=== PATIENT | male | born 1960 | race Caucasian/White ===

== ENCOUNTER 2018-01-27 09:10 | Observation (INO) | payer MEDICARE ==
[~2018-01-27] VITALS: Ht 182.9 cm; Wt 67.0 kg
[2018-01-27 09:12] VITALS: BP 140/105; PULSE 123; RESP 26; TEMP 97.5; O2SAT 99
[2018-01-27 09:22] VITALS: BP 152/105; PULSE 112; RESP 22; O2SAT 99
--- NOTE | 2018-01-27 09:23 | PD ---
HPI Chief Complaint: Respiratory Symptoms Time Seen by Provider: 09:21 Travel History International Travel<30 days: No Contact w/Intl Traveler<30days: No Traveled to known affect area: No History of Present Illness HPI Patient complains that he has had a gradual onset of worsening shortness of breath since Monday, worsening whenever he lays flat, patient states that he is also had some productive sputum as well. Patient denies any alleviating factors. Patient also denies any associated factors such as fever, rash, back pain, headache, neck pain, abdominal pain, nausea, vomiting or diarrhea. PCP is Dr. MARIANO PARKER Oncologist Dr. Carter No known drug allergies Past medical history significant for brain metastases, COPD, lung cancer with lung removal, right inguinal hernia repair, PFSH Past Medical History Cancer: Yes (LUNG CA) Cardiovascular Problems: No Diabetes: No Diminished Hearing: No Glaucoma: No Genitourinary: No Hepatitis: No Hiatal Hernia: No Hypertension: No Musculoskeletal: No Neurologic: No Psychiatric: No Reproductive: No Respiratory: Yes (COPD--ON H&P, LUNG CANCER) Thyroid Disease: No Past Surgical History Abdominal Surgery: Yes (RIGHT INGUINAL HERNIA REPAIR) Cardiac Surgery: No Ear Surgery: No Endocrine Surgery: No Eye Surgery: No Genitourinary Surgery: No Gynecologic Surgery: No Oral Surgery: No Pacemaker: No Thoracic Surgery: No Other Surgery: Yes (UMBILICAL HERNIA) Social History Alcohol Use: Yes (COUPLE OF BEERS DAILY) Tobacco Use: Yes (1 PPD--PRETTY MUCH QUIT 1 WEEK AGO) Substance Use: Yes (MARIJUANA) Allergies-Medications (Allergen,Severity, Reaction): Coded Allergies: No Known Allergies (Verified Allergy, Unknown, 01/27/18) Reported Meds & Prescriptions Reported Meds & Active Scripts Active Review of Systems Except as stated in HPI: all other systems reviewed are Neg General / Constitutional: No: Fever Eyes: No: Visual changes HENT: No: Headaches Cardiovascular: Positive: Chest Pain or Discomfort Respiratory: Positive: Shortness of Breath Gastrointestinal: No: Abdominal Pain Genitourinary: No: Dysuria Musculoskeletal: No: Pain Skin: No Rash Neurologic: No: Weakness Psychiatric: No: Depression Endocrine: No: Polydipsia Hematologic/Lymphatic: No: Easy Bruising Physical Exam Narrative GENERAL: SKIN: Warm and dry. HEAD: Atraumatic. Normocephalic. EYES: Pupils equal and round. No scleral icterus. No injection or drainage. ENT: No nasal bleeding or discharge. Mucous membranes pink and moist. NECK: Trachea midline. No JVD. CARDIOVASCULAR: Regular rate and rhythm. RESPIRATORY: No accessory muscle use. Clear to auscultation. Breath sounds equal bilaterally. GASTROINTESTINAL: Abdomen soft, non-tender, nondistended. MUSCULOSKELETAL: Extremities without clubbing, cyanosis, or edema. No obvious deformities. NEUROLOGICAL: Awake and alert. No obvious cranial nerve deficits. Motor grossly within normal limits. Five out of 5 muscle strength in the arms and legs. Normal speech. PSYCHIATRIC: Appropriate mood and affect; insight and judgment normal. Data Data Last Documented VS Orders Orders Complete Blood Count With Diff (01/27/18 09:36) Comprehensive Metabolic Panel (01/27/18 09:36) B-Type Natriuretic Peptide (01/27/18 09:36) Act Partial Throm Time (Ptt) (01/27/18 09:36) Prothrombin Time / Inr (Pt) (01/27/18 09:36) Ckmb (Isoenzyme) Profile (01/27/18 09:36) Troponin I (01/27/18 09:36) Influenzae A/B Antigen (01/27/18 09:36) Iv Access Insert/Monitor (01/27/18 09:36) Electrocardiogram (01/27/18 09:36) Ecg Monitoring (01/27/18 09:36) Oximetry (01/27/18 09:36) Oxygen Administration (01/27/18 09:36) Chest, Single Ap (01/27/18 09:36) Sodium Chloride 0.9% Flush (Ns Flush) (01/27/18 09:45) Ceftriaxone Inj (Rocephin Inj) (01/27/18 10:15) Azithromycin Inj (Zithromax Inj) (01/27/18 10:15) Vital Signs (Adult) TODD.Q4H (01/27/18 11:10) Resp Oxygen Javier C Titrat 1-4 L (01/27/18 ) Albuterol Neb (Albuterol Neb) (01/27/18 11:15) Admit Order (Ed Use Only) (01/27/18 11:11) Labs Laboratory Tests Test 01/27/18 09:41 White Blood Count 7.1 TH/MM3 Red Blood Count 5.02 MIL/MM3 Hemoglobin 15.5 GM/DL Hematocrit 45.3 % Mean Corpuscular Volume 90.4 FL Mean Corpuscular Hemoglobin 30.8 PG Mean Corpuscular Hemoglobin Concent 34.1 % Red Cell Distribution Width 13.9 % Platelet Count 292 TH/MM3 Mean Platelet Volume 7.9 FL Neutrophils (%) (Auto) 75.3 % Lymphocytes (%) (Auto) 16.1 % Monocytes (%) (Auto) 7.3 % Eosinophils (%) (Auto) 0.8 % Basophils (%) (Auto) 0.5 % Neutrophils # (Auto) 5.3 TH/MM3 Lymphocytes # (Auto) 1.1 TH/MM3 Monocytes # (Auto) 0.5 TH/MM3 Eosinophils # (Auto) 0.1 TH/MM3 Basophils # (Auto) 0.0 TH/MM3 CBC Comment DIFF FINAL Differential Comment Prothrombin Time 11.2 SEC Prothromb Time International Ratio 1.1 RATIO Activated Partial Thromboplast Time 30.5 SEC D-Dimer Quantitative (PE/DVT) 0.76 MG/L FEU Blood Urea Nitrogen 10 MG/DL Creatinine 1.01 MG/DL Random Glucose 148 MG/DL Total Protein 7.5 GM/DL Albumin 3.7 GM/DL Calcium Level 8.9 MG/DL Alkaline Phosphatase 103 U/L Aspartate Amino Transf (AST/SGOT) 19 U/L Alanine Aminotransferase (ALT/SGPT) 16 U/L Total Bilirubin 0.8 MG/DL Sodium Level 133 MEQ/L Potassium Level 4.0 MEQ/L Chloride Level 98 MEQ/L Carbon Dioxide Level 28.0 MEQ/L Anion Gap 7 MEQ/L Estimat Glomerular Filtration Rate 77 ML/MIN Total Creatine Kinase 52 U/L Troponin I LESS THAN 0.02 NG/ML B-Type Natriuretic Peptide 1088 PG/ML [facility] Medical Decision Making Medical Screen Exam Complete: Yes Emergency Medical Condition: Yes Medical Record Reviewed: Yes Interpretation(s) EKG shows sinus tachycardia 103 bpm, P pulmonale, left axis deviation, LVH, inverted T waves on 1 aVL V5 and V6 Differential Diagnosis Pneumothorax versus pneumonia versus pulmonary edema versus pleural effusion versus STEMI versus non-STEMI Narrative Course CBC showed no leukocytosis, no anemia, normal platelet count, and no left shift. Coagulation profile is within normal limits Patient's electrolytes are all within normal limits, normal kidney liver and pancreatic functions. First set of cardiac enzymes negative, beta natruretic peptide 1088, this normally would suggest pulmonary edema however this patient does have a full pneumonectomy of the left lung and thus it is expected that the patient will have cor pulmonale type findings including an elevated beta natruretic peptide Negative flu test Diagnosis Primary Impression: Orthopnea Additional Impression: RLL pneumonia Qualified Codes: J18.1 - Lobar pneumonia, unspecified organism Scripts Fluoxetine (Prozac) 10 Mg Cap 10 MG PO DAILY for Anxiety, #30 CAP 0 Refills Prov: Magno Maxwell MD 01/30/18 Furosemide (Furosemide) 40 Mg Tab 40 MG PO DAILY for heart for 30 Days, #30 TAB Prov: Magno Maxwell MD 01/30/18 Lisinopril (Lisinopril) 5 Mg Tab 2.5 MG PO DAILY for heart for 30 Days, #15 TAB Prov: Magno Maxwell MD 01/30/18 Defibrillator Jacket (Defibrillator Jacket) 1 Ea Device EA EXTERNAL ONCE for nonischemic cardiomyoapthy, #1 3 Refills Energy = 150 Joules; VT Threshold = 150 BPM; VF Threshold = 200 BPM Use up to 90 days only Prov: Pelon Ray MD 01/30/18 Raimundo De La Rosa MD Jan 27, 2018 09:23
[2018-01-27] MEDS ORDERED: SODIUM CHLORIDE 0.9% FLUSH 10 ML FLUSH IVF PRN (09:45)
[2018-01-27 10:00] LABS: AUTOMATED NEUTROPHIL # 5.3 TH/MM3 (1.8-7.7); BASOPHIL % 0.5 % (0.0-2.0); EOSINOPHIL # 0.1 TH/MM3 (0-0.4); EOSINOPHIL % 0.8 % (0.0-4.0); HEMATOCRIT 45.3 % (39.0-51.0); HEMOGLOBIN 15.5 GM/DL (13.0-17.0); LYMPH % 16.1 % (9.0-44.0); LYMPHOCYTE # 1.1 TH/MM3 (1.0-4.8); MEAN CELL VOLUME 90.4 FL (80.0-100.0); MEAN CORPUSCULAR HEMOGLOBIN 30.8 PG (27.0-34.0); MEAN CORPUSCULAR HGB CONC 34.1 % (32.0-36.0); MEAN PLATELET VOLUME 7.9 FL (7.0-11.0); MONO % 7.3 % (0.0-8.0); MONOCYTE # 0.5 TH/MM3 (0-0.9); NEUT % 75.3 % (16.0-70.0); PLATELET COUNT 292 TH/MM3 (150-450); RED BLOOD COUNT 5.02 MIL/MM3 (4.50-5.90); RED CELL DISTRIBUTION WIDTH 13.9 % (11.6-17.2); WHITE BLOOD COUNT 7.1 TH/MM3 (4.0-11.0)
--- NOTE | 2018-01-27 10:04 | RADRPT ---
EXAM DATE/TIME: 01/27/2018 09:45 [facility] COMPARISON: No previous studies available for comparison. INDICATIONS : Shortness of breath. MEDICAL HISTORY : Carcinoma, lung. SURGICAL HISTORY : Left lobectomy. ENCOUNTER: Initial ACUITY: 2 days PAIN SCORE: 0/10 LOCATION: Bilateral chest FINDINGS: 2 AP erect views of the chest were obtained and demonstrat fat e the patient is status post left thor acotomy and pneumonectomy. The left hemithorax is completely opacified and there is volume loss and m ediastinal shift to the left. The right lung is clear except for mild hazy opacity in the right lung base. Multiple surgical clips and raquel are present in the left perihilar region. The bony thorax i s otherwise unremarkable. CONCLUSION: 1. Expected postoperative changes status post left thoracotomy and pneumonectomy. 2. Mild hazy opacity in the right lung base. Sharan Sumner MD on January 27, 2018 at 10:01 Board Certified Radiologist. This report was verified electronically.
[2018-01-27 10:07] LABS: INTERNATIONAL NORMALIZED RATIO 1.1 RATIO; PROTHROMBIN TIME - PATIENT 11.2 SEC (9.8-11.6)
[2018-01-27] MEDS ORDERED: cefTRIAXone INJ 1,000 MG in SODIUM CHLORIDE 0.9% INJ 100 ML IV ONE (10:15)
[2018-01-27] MEDS ORDERED: AZITHROMYCIN INJ 500 MG in SODIUM CHLOR 0.9% 250 ML INJ 250 ML IV ONE (10:15)
[2018-01-27 10:33] LABS: ALBUMIN 3.7 GM/DL (3.4-5.0); AST (GOT) 19 U/L (15-37); BLOOD UREA NITROGEN 10 MG/DL (7-18); CALCIUM 8.9 MG/DL (8.5-10.1); CHLORIDE 98 MEQ/L (98-107); CREATININE 1.01 MG/DL (0.60-1.30); GLOMERULAR FILTRATION RATE 77 ML/MIN (>89); GLUCOSE,RANDOM 148 MG/DL (74-106); SODIUM (NA) 133 MEQ/L (136-145)
[2018-01-27 10:34] LABS: ALT (GPT) 16 U/L (12-78)
[2018-01-27 10:38] LABS: ALKALINE PHOSPHATASE 103 U/L (45-117); TOTAL BILIRUBIN ADULT 0.8 MG/DL (0.2-1.0); TOTAL PROTEIN 7.5 GM/DL (6.4-8.2); TROPONIN I LESS THAN 0.02 NG/ML (0.02-0.05)
[2018-01-27] MEDS ORDERED: ACETAMINOPHEN 325 MG TAB PO PRN (12:15)
--- NOTE | 2018-01-27 12:16 | HHI.HP ---
[facility] Jer Castano MD Admission Diagnosis RLL PNA (LEFT PNEUMONECTOMY) Diagnoses: (1) RLL pneumonia Diagnosis: Principal Chief Complaint: worsening sob Travel History International Travel<30 Days: No Contact w/Intl Traveler <30 Da: No Traveled to Known Affected Are: No History of Present Illness patient is a 57 y/o male with history of lung cancer-s/p left pneumonectomy, and history of melanoma, presented to ER with shortness of breath. he says that his sob started a few days ago and gradually got worse. he denies any fever, chills. he says that he had mild occasional dry cough last week. he denies any chest pain. he doesn't report any recent weight gain and leg swelling. he reports PND and says that he couldn't sleep past few nights because of sob. Review of Systems Constitutional: DENIES: Fever, Weight loss, Chills, Night Sweats Eyes: DENIES: Blurred vision, Diplopia, Vision loss, Double Vision Ears, nose, mouth, throat: DENIES: Tinnitus, Vertigo, Throat pain, Epistaxis Respiratory: COMPLAINS OF: Cough, Shortness of breath, DENIES: Apneas, Snoring , Wheezing, Hemoptysis, Sputum production Cardiovascular: DENIES: Chest pain, Palpitations, Syncope, Dyspnea on Exertion , PND, Lower Extremity Edema, Orthopnea, Claudication Gastrointestinal: DENIES: Abdominal pain, Black stools, Bloody stools, Constipation, Diarrhea, Nausea, Vomiting, Difficulty Swallowing, Anorexia Genitourinary: DENIES: Urinary frequency, Urgency, Hematuria, Dysuria Musculoskeletal: DENIES: Joint pain, Muscle aches, Stiffness, Joint Swelling Integumentary: DENIES: Rash Neurologic: DENIES: Abnormal gait, Headache, Localized weakness, Paresthesias, Seizures, Speech Problems, Tremor, Poor Balance Psychiatric: DENIES: Anxiety, Confusion, Mood changes, Depression, Hallucinations, Agitation, Suicidal Ideation, Homicidal Ideation, Delusions Past Family Social History Past Medical History lung cancer/ melanoma Past Surgical History pneumonectomy/ melanoma removal. Reported Medications none. Allergies: Coded Allergies: No Known Allergies (Verified Allergy, Unknown, 01/27/18) Active Ordered Medications Inpatient Medications Albuterol Sulfate (Albuterol Neb) 1.25 mg Q2HR NEB PRN NEB SHORTNESS OF BREATH ; Start 01/27/18 at 11:15 Azithromycin 500 mg/Sodium Chloride 250 ml @ 250 mls/hr ONCE ONCE IV Last administered on 01/27/18at 10:31; Start 01/27/18 at 10:15; Stop 01/27/18 at 11:14 ; Status DC Ceftriaxone Sodium 1000 mg/ Sodium Chloride 100 ml @ 200 mls/hr ONCE ONCE IV Last administered on 01/27/18at 11:50; Start 01/27/18 at 10:15; Stop 01/27/18 at 10:44; Status DC Sodium Chloride (NS Flush) 2 ml UNSCH PRN IVF FLUSH AFTER USING IV ACCESS; Start 01/27/18 at 09:45 Family History lung cancer in father. Social History smokes a few cigarettes a day- drinks a couple of beers daily. Physical Exam Vital Signs Vital Signs Date Time Temp Pulse Resp B/P (MAP) Pulse Ox O2 Delivery O2 Flow Rate FiO2 01/27/18 09:22 112 22 152/105 (121) 99 Room Air 01/27/18 09:22 115 01/27/18 09:12 97.5 123 26 140/105 (117) 99 Physical Exam GENERAL: This is a well-nourished, well-developed patient, in no apparent distress. SKIN: No rashes, ecchymoses or lesions. Cool and dry. HEAD: Atraumatic. Normocephalic. No temporal or scalp tenderness. EYES: Pupils equal round and reactive. Extraocular motions intact. No scleral icterus. No injection or drainage. ENT: Nose without bleeding, purulent drainage or septal hematoma. Throat without erythema, tonsillar hypertrophy or exudate. Uvula midline. Airway patent. NECK: Trachea midline. No JVD or lymphadenopathy. Supple, nontender, no meningeal signs. CARDIOVASCULAR: Regular rate and rhythm without murmurs, gallops, or rubs. RESPIRATORY: diminished air entry in left chest. GASTROINTESTINAL: Abdomen soft, non-tender, nondistended. No hepato-splenomegaly , or palpable masses. No guarding. MUSCULOSKELETAL: Extremities without clubbing, cyanosis, or edema. No joint tenderness, effusion, or edema noted. No calf tenderness. Negative Homans sign bilaterally. NEUROLOGICAL: Awake and alert. Cranial nerves II through XII intact. Motor and sensory grossly within normal limits. Five out of 5 muscle strength in all muscle groups. Normal speech. Laboratory Laboratory Tests Test 01/27/18 09:41 White Blood Count 7.1 Red Blood Count 5.02 Hemoglobin 15.5 Hematocrit 45.3 Mean Corpuscular Volume 90.4 Mean Corpuscular Hemoglobin 30.8 Mean Corpuscular Hemoglobin Concent 34.1 Red Cell Distribution Width 13.9 Platelet Count 292 Mean Platelet Volume 7.9 Neutrophils (%) (Auto) 75.3 Lymphocytes (%) (Auto) 16.1 Monocytes (%) (Auto) 7.3 Eosinophils (%) (Auto) 0.8 Basophils (%) (Auto) 0.5 Neutrophils # (Auto) 5.3 Lymphocytes # (Auto) 1.1 Monocytes # (Auto) 0.5 Eosinophils # (Auto) 0.1 Basophils # (Auto) 0.0 CBC Comment DIFF FINAL Differential Comment Prothrombin Time 11.2 Prothromb Time International Ratio 1.1 Activated Partial Thromboplast Time 30.5 Blood Urea Nitrogen 10 Creatinine 1.01 Random Glucose 148 Total Protein 7.5 Albumin 3.7 Calcium Level 8.9 Alkaline Phosphatase 103 Aspartate Amino Transf (AST/SGOT) 19 Alanine Aminotransferase (ALT/SGPT) 16 Total Bilirubin 0.8 Sodium Level 133 Potassium Level 4.0 Chloride Level 98 Carbon Dioxide Level 28.0 Anion Gap 7 Estimat Glomerular Filtration Rate 77 Total Creatine Kinase 52 Troponin I LESS THAN 0.02 B-Type Natriuretic Peptide 1088 Date/Time Source Procedure Growth Status 01/27/18 09:41 Nasal Washing Influenza Types A,B Antigen (JOSE) - Final NEGATIVE FOR FLU A AND B ANTIGEN.... Complete Result Diagram: 01/27/1894001/27/18940 Imaging Last Impressions Chest X-Ray 01/27/18935 Signed Impressions: Service Date/Time: Monday, January 27, 2018 09:45 - CONCLUSION: 1. Expected postoperative changes status post left thoracotomy and pneumonectomy. 2. Mild hazy opacity in the right lung base. Sharan Sumner MD EKG; sinus tachycardia with LVH Caprini VTE Risk Assessment Caprini VTE Risk Assessment: Mod/High Risk (score >= 2) Caprini Risk Assessment Model Point Value = 1 Point Value = 2 Point Value = 3 Point Value = 5 Age 41-60 Minor surgery BMI > 25 kg/m2 Swollen legs Varicose veins or History of unexplained or recurrent spontaneous Oral contraceptives or hormone replacement Sepsis (< 1 month) Serious lung disease, including pneumonia (< 1 month) Abnormal pulmonary function Acute myocardial infarction Congestive heart failure (< 1 month) History of inflammatory bowel disease Medical patient at bed rest Age 61-74 Arthroscopic surgery Major open surgery (> 45 min) Laparoscopic surgery (> 45 min) Malignancy Confined to bed (> 72 hours) Immobilizing plaster cast Central venous access Age >= 75 History of VTE Family history of VTE Factor V Leiden Prothrombin [id number] Lupus anticoagulant Anticardiolipin antibodies Elevated serum homocysteine Heparin-induced thrombocytopenia Other congenital or acquired thrombophilia Stroke (< 1 month) Elective arthroplasty Hip, pelvis, or leg fracture Acute spinal cord injury (< 1 month) Prophylaxis Regimen Total Risk Factor Score Risk Level Prophylaxis Regimen 0-1 Low Early ambulation 2 Moderate Order ONE of the following: *Sequential Compression Device (SCD) *Heparin 5000 units SQ BID 3-4 Higher Order ONE of the following medications: *Heparin 5000 units SQ TID *Enoxaparin/Lovenox 40 mg SQ daily (WT < 150 kg, CrCl > 30 mL/min) *Enoxaparin/Lovenox 30 mg SQ daily (WT < 150 kg, CrCl > 10-29 mL/min) *Enoxaparin/Lovenox 30 mg SQ BID (WT < 150 kg, CrCl > 30 mL/min) AND/OR *Sequential Compression Device (SCD) 5 or more Highest Order ONE of the following medications: *Heparin 5000 units SQ TID (Preferred with Epidurals) *Enoxaparin/Lovenox 40 mg SQ daily (WT < 150 kg, CrCl > 30 mL/min) *Enoxaparin/Lovenox 30 mg SQ daily (WT < 150 kg, CrCl > 10-29 mL/min) *Enoxaparin/Lovenox 30 mg SQ BID (WT < 150 kg, CrCl > 30 mL/min) AND *Sequential Compression Device (SCD) Assessment and Plan Assessment and Plan A/P - worsening sob due to RLL pneumonia with history of lung cancer ( s/p left pneumonectomy in 2010 followed by chemo- being f/u by ). continue with IV antibiotics- start on neb treatment as needed- keep on oxygen as needed to keep O2 sat >90%- will check CTA chest and echo - counselled on smoking cessation. -history of melanoma- s/p removal- f/u as outpatient. -DVT prophylaxis with subq Lovenox. Discussed Condition With ER physician and the patient. Problem Qualifiers (1) RLL pneumonia: Qualified Codes: J18.1 - Lobar pneumonia, unspecified organism Lui Gonsales MD Jan 27, 2018 12:16
[2018-01-27] MEDS ORDERED: IOHEXOL 350 MG/ML 10 ML VIAL (for RAD DIAG) IVCONTRAST ONE (13:40)
--- NOTE | 2018-01-27 13:53 | RADRPT ---
EXAM DATE/TIME: 01/27/2018 13:31 [facility] COMPARISON: No previous studies available for comparison. INDICATIONS : Shortness of breath. IV CONTRAST: 50 cc Omnipaque 350 (iohexol) IV RADIATION DOSE: 5.1 CTDIvol (mGy) MEDICAL HISTORY : Carcinoma, lung. SURGICAL HISTORY : Lobectomy. ENCOUNTER: Initial ACUITY: 1 day PAIN SCALE: 0/10 LOCATION: Bilateral chest TECHNIQUE: Volumetric scanning of the chest was performed using a pulmonary embolism protocol MIP images were re constructed. Using automated exposure control and adjustment of the mA and/or kV according to patien t size, radiation dose was kept as low as reasonably achievable to obtain optimal diagnostic quality images. DICOM format image data is available electronically for review and comparison. Follow-up recommendations for detected pulmonary nodules are based at a minimum on nodule size and pa tient risk factors according to Fleischner Society Guidelines. FINDINGS: No filling defects identified in the right lung to suggest pulmonary embolic disease. Postoperative l eft pneumonectomy. There is marked mediastinal shift from right to left some residual fluid in the le ft pleural space. Multiple surgical clips on the left. There is a small right-sided pleural effusion. Mild emphysema in the right lung. CONCLUSION: 1. Negative for pulmonary embolus. 2. Small right pleural effusion. Mild emphysema. 3. Postoperative left pneumonectomy. Gomez Sanon MD on January 27, 2018 at 13:47 Board Certified Radiologist. This report was verified electronically.
[2018-01-27 15:40] VITALS: BP 118/88; PULSE 104; RESP 18; TEMP 97.9; O2SAT 97
[2018-01-27] MEDS: ENOXAPARIN SODIUM 40 MG/0.4 ML SYRINGE SQ SCH (16:09)
[2018-01-27 20:03] VITALS: BP 130/93; PULSE 101; RESP 20; TEMP 97.6; O2SAT 98
[2018-01-27 20:19] VITALS: O2SAT 98
[2018-01-27 23:29] VITALS: BP 126/94; PULSE 110; RESP 20; TEMP 97.3; O2SAT 98
[2018-01-28] VITALS (9 sets, daily range): BP systolic 111–138; BP diastolic 78–101; PULSE 98–115; RESP 18–20; TEMP 97.9–98.8; O2SAT 96–99
[2018-01-28] MEDS: RESP: ALBUTEROL 1.25 MG/3 ML NEB (PRN) NEB ×2 (08:52→16:49)
[2018-01-28] MEDS ORDERED: FUROSEMIDE 20 MG/2 ML VIAL IV PUSH ONE (11:00)
[2018-01-28] MEDS: cefTRIAXone INJ 1,000 MG in SODIUM CHLORIDE 0.9% INJ 100 ML IV SCH (11:21)
[2018-01-28] MEDS: AZITHROMYCIN INJ 500 MG in SODIUM CHLOR 0.9% 250 ML INJ 250 ML IV SCH (11:49)
--- NOTE | 2018-01-28 12:25 | EKG ---
Date Performed: 01/27/2018 Time Performed: 09:25:39 PTAGE: 57 years EKG: SINUS TACHYCARDIA POSSIBLE LEFT ATRIAL ENLARGEMENT MARKED LEFT AXIS DEVIATION LEFT VENTRICU LAR HYPERTROPHY AND ST-T CHANGE ABNORMAL ECG Compared to PREVIOUS TRACING , T-wave inversion in the lateral leads is now present. PREVIOUS TRACING : 03/05/20110502 DOCTOR: Ander Kerns Interpretating Date/Time 01/28/2018 12:22:16
--- NOTE | 2018-01-28 13:35 | MB ---
cc: Pelon Ray MD DATE: 01/28/2018 INDICATION: Congestive heart failure. HISTORY OF PRESENT ILLNESS: This is a 57-year-old gentleman status post lung cancer and left pneumonectomy. He also has a history of prior melanoma, but no prior history of known heart disease. He states that he has had progressive shortness of breath over the course of the past week or so. His symptoms are worse while lying flat. He says he has a difficult time sleeping. He came into the emergency department yesterday very short of breath. He said he did have a bowel movement with improvement in some of his symptoms, but then last night, they became worse again. He denies any recent weight gain, does not have any edema in the legs. His BNP was elevated. There is concern for new congestive heart failure symptoms and we are consulted for further recommendations. PAST MEDICAL HISTORY: Lung cancer, melanoma. PRIOR SURGERIES: Pneumonectomy, melanoma removal. ALLERGIES: NO KNOWN DRUG ALLERGIES. MEDICATIONS: Ceftriaxone, azithromycin, albuterol. SOCIAL HISTORY: Smokes a few cigarettes a day, has a couple drinks of alcohol a day. Denies any family history of early coronary artery disease or sudden cardiac . REVIEW OF SYSTEMS: A 12-point review of systems was performed, negative unless otherwise noted in history of present illness. PHYSICAL EXAMINATION: VITAL SIGNS: Temperature is 98, pulse is 110-115 beats a minute, blood pressure is 138/101. GENERAL: Alert and oriented x 3, in no acute distress. HEENT: Shows pupils reactive to light and accommodation. Extraocular movements are intact. NECK: No elevation or jugular venous distention. No thyromegaly, no lymphadenopathy. No carotid bruits. LUNGS: Clear to auscultation bilaterally. Decreased breath sounds on the left side. CARDIOVASCULAR: Tachycardic, but regular. No murmurs, rubs or gallops. ABDOMEN: Nontender, nondistended with good bowel sounds. No hepatosplenomegaly. EXTREMITIES: Show no clubbing, cyanosis or edema. Good peripheral pulses. NEUROLOGIC: Cranial nerves intact. Motor system grossly intact. LABORATORY DATA: WBC 7.1, hemoglobin 15.5, platelet count is 292. INR is 1.1. BUN is 10, creatinine is 1.01. Troponins is 0.02. Electrocardiogram shows sinus tachycardia, T-wave inversions anterolaterally. ASSESSMENT: 1. Shortness of breath. 2. Abnormal electrocardiogram, elevated BNP. PLAN: Physical examination is not terribly concerning for congestive heart failure. His jugular veins are not severely elevated. His 1 lung does not have significant crackles. He has no edema, but his BNP is elevated. He does have some T-wave inversions, which appear to be new. Denies any stephen chest pain. He is on antibiotics in addition to some diuretics. We will see how he progresses over the course of the next 24 hours. We will watch his creatinine and ins and outs. A 2-D echocardiogram is pending. Without any symptoms at this point, we will just repeat electrocardiogram and trend troponin. No plan for any invasive strategy or stress testing. Pleon Ray MD LUCIA/SB , 01:08 PM , 01:34 PM
[2018-01-28] MEDS: ENOXAPARIN SODIUM 40 MG/0.4 ML SYRINGE SQ SCH (14:47)
--- NOTE | 2018-01-28 17:28 | HHI.PR ---
Subjective Remarks Patient seen today around 3 PM. Says that shortness of breath is improving. Denies any chest pain. Objective Vital Signs Date Time Temp Pulse Resp B/P (MAP) Pulse Ox O2 Delivery O2 Flow Rate FiO2 01/28/18 16:03 98.4 102 18 117/90 (99) 98 01/28/18 13:25 98.8 106 20 114/81 (92) 99 01/28/18 09:16 98 Nasal Cannula 2.00 01/28/18 08:53 98 Simple Mask 3.00 01/28/18 07:57 98.1 115 20 138/101 (113) 96 01/28/18 03:37 98.0 102 20 113/87 (96) 97 01/27/18 23:29 97.3 110 20 126/94 (105) 98 01/27/18 20:19 98 01/27/18 20:03 97.6 101 20 130/93 (105) 98 I/O 01/27/18 01/27/18 01/27/18 01/28/18 01/28/18 01/28/18 07:00 15:00 23:00 07:00 15:00 23:00 Intake Total 350 ml Output Total 1000 ml Balance 350 ml -1000 ml Intake IV Total 350 ml Output Urine Total 1000 ml Result Diagram: 01/27/1894001/27/18940 Objective Remarks GENERAL: patient sitting up in bed. Appears comfortable. SKIN: Warm and dry. HEAD: Normocephalic. EYES: No scleral icterus. No injection or drainage. NECK: Supple, trachea midline. No JVD. CARDIOVASCULAR: Regular rate and rhythm without murmurs, gallops, or rubs. RESPIRATORY: absent breath sounds on the left.. No accessory muscle use. GASTROINTESTINAL: Abdomen soft, non-tender, nondistended. MUSCULOSKELETAL: No cyanosis, or edema. BACK: Nontender without obvious deformity. No CVA tenderness. A/P Assessment and Plan // worsening sob due to RLL pneumonia with history of lung cancer ( s/p left pneumonectomy in 2010 followed by chemo- being f/u by ). continue with IV antibiotics- start on neb treatment as needed- keep on oxygen as needed to keep O2 sat >90%- will check CTA chest and echo - = Small right pleural effusion on CT pulmonary angiogram. No PE. BNP elevated thousand. Consult cardiology. Echocardiogram pending. Fluid restrictions. //Tobaccoism .counselled on smoking cessation. //history of melanoma- s/p removal- f/u as outpatient. //DVT prophylaxis with subq Lovenox. Discharge Planning pending further improvement Echocardiogram pending. Cardiology consult pending. Magno Maxwell MD Jan 28, 2018 17:28
[2018-01-29 07:53] VITALS: BP 113/82; PULSE 109; RESP 20; TEMP 98.3; O2SAT 99
--- NOTE | 2018-01-29 08:48 | PD.CARD.PN ---
Subjective Subjective Remarks patient currently out of room getting imaging Objective Medications Current Medications Medications (Trade) Dose Ordered Sig/Emma Route Start Time Stop Time Status Last Admin (NS Flush) 2 ml UNSCH PRN IVF 01/27/18 09:45 (Albuterol Neb) 1.25 mg Q2HR NEB PRN NEB 01/27/18 11:15 01/28/18 16:49 Ceftriaxone Sodium 1000 mg/ Sodium Chloride 100 ml @ 200 mls/hr Q24H IV 01/28/18 12:00 01/28/18 11:21 Azithromycin 500 mg/Sodium Chloride 250 ml @ 250 mls/hr Q24H IV 01/28/18 11:00 01/28/18 11:49 (Tylenol) 650 mg Q4H PRN PO 01/27/18 12:15 (Lovenox Inj) 40 mg Q24H SQ 01/27/18 14:00 01/28/18 14:47 Vital Signs / I&O Vital Signs Date Time Temp Pulse Resp B/P (MAP) Pulse Ox O2 Delivery O2 Flow Rate FiO2 01/29/18 07:53 98.3 109 20 113/82 (92) 99 01/28/18 23:40 98.0 102 18 114/89 (97) 98 01/28/18 20:46 97.9 98 18 111/78 (89) 98 01/28/18 19:27 98 Nasal Cannula 2.00 01/28/18 16:03 98.4 102 18 117/90 (99) 98 01/28/18 13:25 98.8 106 20 114/81 (92) 99 01/28/18 09:16 98 Nasal Cannula 2.00 01/28/18 08:53 98 Simple Mask 3.00 I/O 01/28/18 01/28/18 01/28/18 01/29/18 01/29/18 01/29/18 07:00 15:00 23:00 07:00 15:00 23:00 Output Total 1000 ml 450 ml Balance -1000 ml -450 ml Output Urine Total 1000 ml 450 ml # Voids 2 Physical Exam GENERAL: SKIN: Warm and dry. HEAD: Atraumatic. Normocephalic. EYES: Pupils equal and round. ENT: No nasal bleeding or discharge. NECK: Trachea midline. No JVD. CARDIOVASCULAR: Regular rate and rhythm. no murmurs RESPIRATORY: No accessory muscle use. Clear to auscultation. Breath sounds equal bilaterally. GASTROINTESTINAL: Abdomen soft, non-tender, nondistended. Hepatic and splenic margins not palpable. MUSCULOSKELETAL: Extremities without clubbing, cyanosis, or edema.. NEUROLOGICAL: Awake and alert. No obvious cranial nerve deficits. Normal speech. PSYCHIATRIC: Appropriate mood and affect; insight and judgment normal. Imaging Last 48 hours Impressions Chest X-Ray 01/27/18 0936 Signed Impressions: Service Date/Time: Saturday, January 27, 2018 09:45 - CONCLUSION: 1. Expected postoperative changes status post left thoracotomy and pneumonectomy. 2. Mild hazy opacity in the right lung base. Sharan Sumner MD Assessment and Plan Problem List: (1) SOB (shortness of breath) ICD Codes: R06.02 - Shortness of breath Assessment and Plan 57 yo M with history of lung cancer and left pneumonectomy and melanoma presented with progressive SOB, elevated BNP and new T wave inversions on EKG tracing. SOB- possible CHF; echo pending diuresing well with negative fluid balance, monitor creatinine current treatment for RLL pneumonia with antibiotics and nebulizer Vida Trejo Jan 29, 2018 08:48
--- NOTE | 2018-01-29 09:04 | EKG ---
Date Performed: 01/28/2018 Time Performed: 13:31:49 PTAGE: 57 years EKG: Sinus rhythm POSSIBLE LEFT ATRIAL ENLARGEMENT MARKED LEFT AXIS DEVIATION LEFT VENTRICULAR HYPERTROPHY AND ST-T CH YUMIKO ABNORMAL ECG PREVIOUS TRACING : 01/27/2018 09.25 Since the previous tracing, no significant change noted DOCTOR: Patrick Moreno Interpretating Date/Time 01/29/2018 09:03:29
[2018-01-29 10:59] VITALS: BP 112/85; PULSE 94; RESP 20; TEMP 97.8; O2SAT 100
[2018-01-29] MEDS: cefTRIAXone INJ 1,000 MG in SODIUM CHLORIDE 0.9% INJ 100 ML IV SCH (11:45)
[2018-01-29] MEDS: AZITHROMYCIN INJ 500 MG in SODIUM CHLOR 0.9% 250 ML INJ 250 ML IV SCH (12:02)
--- NOTE | 2018-01-29 12:50 | ECHRPT ---
Indication: Shortness of Breath CONCLUSIONS The left ventricular systolic function is severely reduced with an estimated ejection fraction less than 20%. Mild concentric left ventricular hypertrophy. Severely dilated left ventricle. There is diffuse global hypokinesis with distinct regional wall motion abnormalities. The right ventricle is moderately dilated. The left atrial size is moderately dilated. Coronary sinus is dilated. The right atrial size is moderately dilated. Mild thickening of the mitral valve leaflets. Moderate mitral valve regurgitation. Mild thickening of the aortic valve leaflets. Mild aortic valve regurgitation. There is moderate tricuspid regurgitation. There is greater than 50% respiratory change in dimension of the inferior vena cava (normal). The inferior vena cava is dilated. BP: 138 / 101 HR: 115 Rhythm: Sinus MEASUREMENTS (Male / Female) Normal Values Technical Quality:Fair 2D ECHO LV Diastolic Diameter PLAX 7.0 cm 4.2 - 5.9 / 3.9 - 5.3 cm LV Systolic Diameter PLAX 6.2 cm IVS Diastolic Thickness 1.1 cm 0.6 - 1.0 / 0.6 - 0.9 cm LVPW Diastolic Thickness 1.1 cm 0.6 - 1.0 / 0.6 - 0.9 cm LV Relative Wall Thickness 0.3 RV Internal Dim ED PLAX 4.7 cm LVOT Diameter 2.4 cm LA Systolic Diameter LX 5.5 cm 3.0 - 4.0 / 2.7 - 3.8 cm LV Ejection Fraction MOD BP 21.2 % >= 55 % LV Cardiac Index MOD BP 3063.2 cm/minm LV Ejection Fraction MOD 4C 25.4 % LV Cardiac Index MOD 4C 3063.2 cm/minm LV Ejection Fraction 4C AL 24.8 % LV Cardiac Index 4C AL 3272.6 cm/minm LV Ejection Fraction MOD 2C 17.0 % LV Cardiac Index MOD 2C 2634.3 cm/minm LV Ejection Fraction 2C AL 20.3 % LV Cardiac Index 2C AL 3312.5 cm/minm LA Volume Index 64.1 cm/m 16 - 28 cm/m M-MODE Aortic Root Diameter MM 3.4 cm LA Systolic Diameter MM 4.6 cm LA Ao Ratio MM 1.4 MV E Point Septal Separation 1.8 cm AV Cusp Separation MM 2.1 cm DOPPLER AV Peak Velocity 73.4 cm/s AV Peak Gradient 2.2 mmHg AI Peak Velocity 469.0 cm/s AI Peak Gradient 88.0 mmHg AI Pressure Half Time 331.0 ms LVOT Peak Velocity 43.2 cm/s LVOT Peak Gradient 0.7 mmHg AV Area Cont Eq pk 2.7 cm MV Area PHT 6.9 cm Mitral E Point Velocity 75.4 cm/s Mitral A Point Velocity 23.0 cm/s Mitral E to A Ratio 3.3 LV E' Lateral Velocity 18.2 cm/s Mitral E to LV E' Lateral Ratio 4.1 LV E' Septal Velocity 7.7 cm/s Mitral E to LV E' Septal Ratio 9.8 TR Peak Velocity 407.0 cm/s TR Peak Gradient 66.3 mmHg Right Atrial Pressure 10.0 mmHg Pulmonary Artery Systolic Pressu 76.3 mmHg Right Ventricular Systolic Press 76.3 mmHg FINDINGS LEFT VENTRICLE The left ventricular systolic function is severely reduced with an estimated ejection fraction less than 20%. Mild concentric left ventricular hypertrophy. Severely dilated left ventricle. There is diffuse global hypokinesis with distinct regional wall motion abnormalities. RIGHT VENTRICLE The right ventricle is moderately dilated. LEFT ATRIUM The left atrial size is moderately dilated. Coronary sinus is dilated. RIGHT ATRIUM The right atrial size is moderately dilated. ATRIAL SEPTUM Normal atrial septal thickness without atrial level shunting by limited color doppler interrogation. AORTA The aortic root and proximal ascending aorta are normal in size on limited imaging. MITRAL VALVE Mild thickening of the mitral valve leaflets. Moderate mitral valve regurgitation. AORTIC VALVE Trileaflet aortic valve. Mild thickening of the aortic valve leaflets. Mild aortic valve regurgitation. TRICUSPID VALVE Structurally normal tricuspid valve. There is moderate tricuspid regurgitation. PULMONARY VALVE No pulmonary valve regurgitation or stenosis. VESSELS There is greater than 50% respiratory change in dimension of the inferior vena cava (normal). The inferior vena cava is dilated. PERICARDIUM No pericardial effusion. Pelon Ray MD, FACC (Electronically Signed) Final Date:29 January 2018 12:49
[2018-01-29] MEDS ORDERED: PILL SPLITTER OTHER PRN (13:00)
[2018-01-29] MEDS ORDERED: FUROSEMIDE 20 MG/2 ML VIAL IV PUSH ONE (13:00)
[2018-01-29] MEDS: ENOXAPARIN SODIUM 40 MG/0.4 ML SYRINGE SQ SCH (13:25)
[2018-01-29] MEDS ORDERED: REGADENOSON INJ 0.4 MG/5 ML SYR ONE (14:03)
--- NOTE | 2018-01-29 14:06 | HHI.PR ---
Subjective Remarks Patient seen today around 3 PM. Says that shortness of breath is improving. Denies any chest pain. Objective Vital Signs Date Time Temp Pulse Resp B/P (MAP) Pulse Ox O2 Delivery O2 Flow Rate FiO2 01/29/18 10:59 97.8 94 20 112/85 (94) 100 01/29/18 07:53 98.3 109 20 113/82 (92) 99 01/28/18 23:40 98.0 102 18 114/89 (97) 98 01/28/18 20:46 97.9 98 18 111/78 (89) 98 01/28/18 19:27 98 Nasal Cannula 2.00 01/28/18 16:03 98.4 102 18 117/90 (99) 98 I/O 01/28/18 01/28/18 01/28/18 01/29/18 01/29/18 01/29/18 07:00 15:00 23:00 07:00 15:00 23:00 Intake Total 120 ml Output Total 1000 ml 450 ml Balance -1000 ml -450 ml 120 ml Intake Oral 120 ml Output Urine Total 1000 ml 450 ml # Voids 2 Result Diagram: 01/27/1894001/27/18940 Objective Remarks GENERAL: patient sitting up in bed. Appears comfortable. Exam unchanged from yesterday. SKIN: Warm and dry. HEAD: Normocephalic. EYES: No scleral icterus. No injection or drainage. NECK: Supple, trachea midline. No JVD. CARDIOVASCULAR: Regular rate and rhythm without murmurs, gallops, or rubs. RESPIRATORY: absent breath sounds on the left.. No accessory muscle use. GASTROINTESTINAL: Abdomen soft, non-tender, nondistended. MUSCULOSKELETAL: No cyanosis, or edema. BACK: Nontender without obvious deformity. No CVA tenderness. A/P Assessment and Plan // worsening sob due to RLL pneumonia with history of lung cancer ( s/p left pneumonectomy in 2010 followed by chemo- being f/u by ). continue with IV antibiotics- start on neb treatment as needed- keep on oxygen as needed to keep O2 sat >90%- will check CTA chest and echo - = Small right pleural effusion on CT pulmonary angiogram. No PE. BNP elevated thousand. Consult cardiology. Echocardiogram pending. Fluid restrictions. = Repeat chest x-ray to assess improvement. Continue antibiotics for now. Continue to monitor. //CHF exacerbation. Improved with fluid restrictions and Lasix. Cardiology following. EF in the 20s. Stress test pending. //Tobaccoism .counselled on smoking cessation. //history of melanoma- s/p removal- f/u as outpatient. //DVT prophylaxis with subq Lovenox. Discharge Planning pending further improvement Pending cardiology clearance Magno Maxwell MD Jan 29, 2018 14:06
--- NOTE | 2018-01-29 15:34 | RADRPT ---
EXAM DATE/TIME: 01/29/2018 14:08 [facility] COMPARISON: No previous studies available for comparison. INDICATIONS : Shortness of breath for one week. Congestive heart failure. DOSE: 25.6 mCi Tc99m Myoview at stress. 8.7 mCi Tc99m Myoview at rest. 0.4 mg Lexiscan STRESS SYMPTOMS: Shortness of breath. EJECTION FRACTION: 15% MEDICAL HISTORY : Carcinoma, lung. Melanoma. SURGICAL HISTORY : Pneumonectomy. ENCOUNTER: Initial ACUITY: 1 week PAIN SCALE: 0/10 LOCATION: chest TECHNIQUE: The patient underwent pharmacologic stress with infusion of prescribed dose. Continuous ECG tracing was monitored during stress. Gated SPECT imaging was performed after stress and conventional SPECT i maging was performed at rest. The examination was performed on a SPECT/CT scanner, both attenuation and non-corrected datasets were reviewed. FINDINGS: DISTRIBUTION: The maximum perfused segment at stress is in the septal wall. PERFUSION STUDY: There is a small size mild severity fixed defect directly at the apex. No reversible ischemic segment s are identified. GATED STUDY: Severe global hypokinesis with 13% ejection fraction. CONCLUSION: Severe global hypokinesis characteristic of cardiomyopathy with 15% ejection fraction. No reversible ischemic segments are identified. RISK CATEGORY: High (>3% Annual Mortality Rate) Ander Beard MD on January 29, 2018 at 15:29 Board Certified Radiologist. This report was verified electronically.
--- NOTE | 2018-01-29 17:37 | RADRPT ---
EXAM DATE/TIME: 01/29/2018 16:57 [facility] COMPARISON: CHEST SINGLE AP, January 27, 2018, 9:45. INDICATIONS : Short of breath MEDICAL HISTORY : Congestive heart failure. Carcinoma, lung. Melanoma SURGICAL HISTORY : Pneumonectomy. ENCOUNTER: Subsequent ACUITY: 3 days PAIN SCORE: 0/10 LOCATION: FINDINGS: Stable complete opacification left hemithorax and mediastinal shift towards the left. The right lung is clear with the exception of the costophrenic angle where there is some ill-defined opacity obscur ing the ankle. CONCLUSION: Small area of infiltrate or opacity in the right costophrenic angle. Prior pneumonectomy with comple te opacification left hemithorax, stable. Corby Gonzalez MD on January 29, 2018 at 17:34 Board Certified Radiologist. This report was verified electronically.
[2018-01-29] MEDS ORDERED: TEMAZEPAM 7.5 MG CAP PO PRN (19:00)
[2018-01-29 20:33] VITALS: BP 113/87; PULSE 99; RESP 18; TEMP 97.9; O2SAT 100
[2018-01-29] MEDS: RESP: ALBUTEROL 1.25 MG/3 ML NEB (PRN) NEB (20:59)
[2018-01-29 21:04] VITALS: O2SAT 100
[2018-01-30 03:30] VITALS: BP 110/80; PULSE 94; RESP 18; TEMP 97.9; O2SAT 99
[2018-01-30 07:35] VITALS: BP 114/84; PULSE 108; RESP 18; TEMP 97.9; O2SAT 97
[2018-01-30] MEDS ORDERED: DEFIB EXTERNAL (08:24)
--- NOTE | 2018-01-30 08:34 | PD.CARD.PN ---
Subjective Subjective Remarks Breathing much better nearly back to baseline. No chest pain or palpitations. He is wondering if there is anything he can do to improve his heart function. Drinks a couple alcoholic beverages daily. Objective Medications Current Medications Medications (Trade) Dose Ordered Sig/Emma Route Start Time Stop Time Status Last Admin (NS Flush) 2 ml UNSCH PRN IVF 01/27/18 09:45 (Albuterol Neb) 1.25 mg Q2HR NEB PRN NEB 01/27/18 11:15 01/29/18 20:59 Ceftriaxone Sodium 1000 mg/ Sodium Chloride 100 ml @ 200 mls/hr Q24H IV 01/28/18 12:00 01/29/18 11:45 Azithromycin 500 mg/Sodium Chloride 250 ml @ 250 mls/hr Q24H IV 01/28/18 11:00 01/29/18 12:02 (Tylenol) 650 mg Q4H PRN PO 01/27/18 12:15 (Lovenox Inj) 40 mg Q24H SQ 01/27/18 14:00 01/29/18 13:25 (Prinivil) 2.5 mg DAILY PO 01/30/18 09:00 (Lasix) 40 mg DAILY PO 01/30/18 09:00 (Pill Splitter) 1 ea UNSCH PRN OTHER 01/29/18 13:00 (Restoril) 7.5 mg HS PRN PO 01/29/18 19:00 01/29/18 23:31 Vital Signs / I&O Vital Signs Date Time Temp Pulse Resp B/P (MAP) Pulse Ox O2 Delivery O2 Flow Rate FiO2 01/30/18 07:35 97.9 108 18 114/84 (94) 97 01/30/18 03:30 97.9 94 18 110/80 (90) 99 01/29/18 21:04 100 Nasal Cannula 2.00 01/29/18 20:33 97.9 99 18 113/87 (96) 100 01/29/18 10:59 97.8 94 20 112/85 (94) 100 I/O 01/29/18 01/29/18 01/29/18 01/30/18 01/30/18 01/30/18 07:00 15:00 23:00 07:00 15:00 23:00 Intake Total 120 ml 300 ml Balance 120 ml 300 ml Intake Oral 120 ml 300 ml # Voids 2 Physical Exam GENERAL: Well-developed well-nourished. In no acute distress. NECK: No carotid bruits. No JVD. CARDIOVASCULAR: Regular rate and rhythm. No murmur appreciated. RESPIRATORY: No accessory muscle use. Absent breath sounds in the left lung base. MUSCULOSKELETAL: No clubbing or cyanosis. No edema. NEUROLOGICAL: Awake and alert. Normal speech. Imaging Last Impressions Myocardial Perfusion Scan Nuc Med 01/29/18 0000 Signed Impressions: Service Date/Time: Monday, January 29, 2018 14:08 - CONCLUSION: Severe global hypokinesis characteristic of cardiomyopathy with 15%% ejection fraction. No reversible ischemic segments are identified. RISK CATEGORY: High (>3%% Annual Mortality Rate) Ander Beard MD Chest X-Ray 01/29/18 0000 Signed Impressions: Service Date/Time: Monday, January 29, 2018 16:57 - CONCLUSION: Small area of infiltrate or opacity in the right costophrenic angle. Prior pneumonectomy with complete opacification left hemithorax, stable. Corby Gonzalez MD CT Angiography 01/27/18 0000 Signed Impressions: Service Date/Time: Saturday, January 27, 2018 13:31 - CONCLUSION: 1. Negative for pulmonary embolus. 2. Small right pleural effusion. Mild emphysema. 3. Postoperative left pneumonectomy. Gomez Sanon MD Assessment and Plan Problem List: (1) SOB (shortness of breath) ICD Codes: R06.02 - Shortness of breath Assessment and Plan 57 yo M with history of lung cancer and left pneumonectomy and melanoma presented with progressive SOB, elevated BNP and new T wave inversions on EKG tracing. Nonischemic cardiomyopathy: Echo with EF less than 20%, dilated left and right ventricles, global hypokinesis. Lexiscan with no evidence of ischemia. Patient counseled regarding ceasing/decreasing alcohol intake. Start lisinopril , BP is too soft for addition of beta-sanju at this time. LifeVest. Outpatient follow-up. Acute systolic CHF exacerbation: Improved with diuresis, continue oral Lasix. Clear for discharge from cardiology perspective today Discussed Condition With Patient, Dr. Ray RN, Hospitalist Rashad Chavez Jan 30, 2018 08:34
[2018-01-30 08:49] VITALS: O2SAT 99
[2018-01-30] MEDS ORDERED: LISINOPRIL 5 MG TAB PO SCH (09:00)
[2018-01-30] MEDS ORDERED: FUROSEMIDE 40 MG TAB PO SCH (09:00)
--- NOTE | 2018-01-30 10:06 | HHI.PR ---
Subjective Remarks Patient says he is feeling well. Denies any chest pain or shortness of breath. Feels like going home. Objective Vital Signs Date Time Temp Pulse Resp B/P (MAP) Pulse Ox O2 Delivery O2 Flow Rate FiO2 01/30/18 08:49 99 Nasal Cannula 2.00 01/30/18 07:35 97.9 108 18 114/84 (94) 97 01/30/18 03:30 97.9 94 18 110/80 (90) 99 01/29/18 21:04 100 Nasal Cannula 2.00 01/29/18 20:33 97.9 99 18 113/87 (96) 100 01/29/18 10:59 97.8 94 20 112/85 (94) 100 I/O 01/29/18 01/29/18 01/29/18 01/30/18 01/30/18 01/30/18 07:00 15:00 23:00 07:00 15:00 23:00 Intake Total 120 ml 300 ml Balance 120 ml 300 ml Intake Oral 120 ml 300 ml # Voids 2 Result Diagram: 01/27/1894001/27/18 0941 Objective Remarks GENERAL: patient sitting up in bed. Appears comfortable. Alert and oriented 4. SKIN: Warm and dry. HEAD: Normocephalic. EYES: No scleral icterus. No injection or drainage. NECK: Supple, trachea midline. No JVD. CARDIOVASCULAR: Regular rate and rhythm without murmurs, gallops, or rubs. RESPIRATORY: absent breath sounds on the left.. No accessory muscle use. GASTROINTESTINAL: Abdomen soft, non-tender, nondistended. MUSCULOSKELETAL: No cyanosis, or edema. BACK: Nontender without obvious deformity. No CVA tenderness. A/P Assessment and Plan // worsening sob due to RLL pneumonia with history of lung cancer ( s/p left pneumonectomy in 2010 followed by chemo- being f/u by ). continue with IV antibiotics- start on neb treatment as needed- keep on oxygen as needed to keep O2 sat >90%- will check CTA chest and echo - = Small right pleural effusion on CT pulmonary angiogram. No PE. BNP elevated thousand. Consult cardiology. Echocardiogram pending. Fluid restrictions. = Repeat chest x-ray to assess improvement. Continue antibiotics for now. Continue to monitor. = Unlikely pneumonia. Discontinue antibiotics. Continue treatment for CHF exacerbation as below. //CHF exacerbation. Improved with fluid restrictions and Lasix. Cardiology following. EF in the 20s. = Nonischemic. LifeVest as per cardiology. Appreciate cardiology assistance. = Continue on lisinopril, will start low-dose metoprolol. Awaiting LifeVest //Tobaccoism .counselled on smoking cessation. //history of melanoma- s/p removal- f/u as outpatient. //DVT prophylaxis with subq Lovenox. Discharge Planning Awaiting LifeVest. -Patient will continue on YEHUDA inhibitor, beta-sanju for 3 months, with repeat echo. Magno Maxwell MD Jan 30, 2018 10:06
[2018-01-30] MEDS ORDERED: LISI-519 PO (10:08)
[2018-01-30] MEDS ORDERED: METO25TA3 PO (10:08)
--- NOTE | 2018-01-30 10:10 | HHI.DS ---
Discharge Summary Admission Date Jan 27, 2018 at 11:14 Discharge Date: Jan 30, 2018 Admitting Diagnosis RLL PNA (LEFT PNEUMONECTOMY) (1) RLL pneumonia ICD Code: J18.1 - Lobar pneumonia, unspecified organism Diagnosis: Principal Procedures No invasive procedures Echocardiogram. Please see report Brief History - From Admission patient is a 57 y/o male with history of lung cancer-s/p left pneumonectomy, and history of melanoma, presented to ER with shortness of breath. he says that his sob started a few days ago and gradually got worse. he denies any fever, chills. he says that he had mild occasional dry cough last week. he denies any chest pain. he doesn't report any recent weight gain and leg swelling. he reports PND and says that he couldn't sleep past few nights because of sob. CBC/BMP: 01/27/18 0941 01/27/18 0941 Imaging Last Impressions Myocardial Perfusion Scan Nuc Med 01/29/18 0000 Signed Impressions: Service Date/Time: Monday, January 29, 2018 14:08 - CONCLUSION: Severe global hypokinesis characteristic of cardiomyopathy with 15%% ejection fraction. No reversible ischemic segments are identified. RISK CATEGORY: High (>3%% Annual Mortality Rate) Ander Beard MD Chest X-Ray 01/29/18 0000 Signed Impressions: Service Date/Time: Monday, January 29, 2018 16:57 - CONCLUSION: Small area of infiltrate or opacity in the right costophrenic angle. Prior pneumonectomy with complete opacification left hemithorax, stable. Corby Gonzalez MD CT Angiography 01/27/18 0000 Signed Impressions: Service Date/Time: Saturday, January 27, 2018 13:31 - CONCLUSION: 1. Negative for pulmonary embolus. 2. Small right pleural effusion. Mild emphysema. 3. Postoperative left pneumonectomy. Gomez Sanon MD Hospital Course Angiography on admission showing small right pleural effusion, negative for pulmonary embolism. BNP 1000. Echocardiogram showed ejection fraction of 15%. Cardiology consulted. Patient underwent myocardial perfusion scan as above. Patient was cleared by cardiology for discharge. Patient was started on YEHUDA inhibitor, however felt weak using low-dose metoprolol and this will be held. Patient will discharge home on Lasix, lisinopril. Patient reports anxiety regarding diagnosis. Due to his ongoing anxiety, will start on Prozac. Follow- up with primary care. For problem-based summary from most recent progress note, please see below. // worsening sob due to RLL pneumonia with history of lung cancer ( s/p left pneumonectomy in 2010 followed by chemo- being f/u by ). continue with IV antibiotics- start on neb treatment as needed- keep on oxygen as needed to keep O2 sat >90%- will check CTA chest and echo - = Small right pleural effusion on CT pulmonary angiogram. No PE. BNP elevated thousand. Consult cardiology. Echocardiogram pending. Fluid restrictions. = Repeat chest x-ray to assess improvement. Continue antibiotics for now. Continue to monitor. = Unlikely pneumonia. Discontinue antibiotics. Continue treatment for CHF exacerbation as below. //CHF exacerbation. Improved with fluid restrictions and Lasix. Cardiology following. EF in the 20s. = Nonischemic. LifeVest as per cardiology. Appreciate cardiology assistance. = Continue on lisinopril, will start low-dose metoprolol. Awaiting LifeVest //Tobaccoism .counselled on smoking cessation. //history of melanoma- s/p removal- f/u as outpatient. //DVT prophylaxis with subq Lovenox. Discharge Planning Awaiting LifeVest. -Patient will continue on YEHUDA inhibitor, beta-sanju for 3 months, with repeat echo. Pt Condition on Discharge: Good Discharge Disposition: Discharge Home Discharge Time: > 30 minutes Discharge Instructions DIET: Follow Instructions for: As Tolerated, No Restrictions Activities you can perform: Regular-No Restrictions Follow up Referrals: Cardiology - 1 Week with Pelon Ray MD PCP Follow-up - 1 Week with Jer Castano MD New Orders: 2D ECHO - 3 Months New Medications: Defibrillator Jacket (Defibrillator Jacket) 1 Ea Device EA EXTERNAL ONCE for nonischemic cardiomyoapthy, #1 3 Refills Energy = 150 Joules; VT Threshold = 150 BPM; VF Threshold = 200 BPM Use up to 90 days only Fluoxetine (Prozac) 10 Mg Cap 10 MG PO DAILY for Anxiety, #30 CAP 0 Refills Furosemide (Furosemide) 40 Mg Tab 40 MG PO DAILY for heart for 30 Days, #30 TAB Lisinopril (Lisinopril) 5 Mg Tab 2.5 MG PO DAILY for heart for 30 Days, #15 TAB Discontinued Medications: [None] () Magno Maxwell MD Jan 30, 2018 10:10
[2018-01-30] MEDS ORDERED: METOPROLOL TARTRATE 25 MG TAB PO SCH (11:00)
[2018-01-30] MEDS: AZITHROMYCIN INJ 500 MG in SODIUM CHLOR 0.9% 250 ML INJ 250 ML IV SCH (11:08)
[2018-01-30 12:51] VITALS: BP 85/58; PULSE 80; RESP 18; TEMP 97.7; O2SAT 100
[2018-01-30 14:59] VITALS: BP 98/69; PULSE 81; RESP 18; TEMP 97.6; O2SAT 94
[2018-01-30] MEDS ORDERED: FURO40TA PO (18:25)
[2018-01-30] MEDS ORDERED: FLUO-1 PO (18:25)
== END 2018-01-30 20:17 | disposition home or self-care (01) ==
LOC: NEPE 09:10 → NEDA 11:14 → NEPGCP 14:54
PROVIDERS: ADMIT Internal Medicine; ATTEND Internal Medicine
DX: I50.23 Acute on chronic systolic (congestive) heart failure (principal); F17.210 Nicotine dependence, cigarettes, uncomplicated; I42.9 Cardiomyopathy, unspecified; C79.31 Secondary malignant neoplasm of brain; J44.9 Chronic obstructive pulmonary disease, unspecified; F12.90 Cannabis use, unspecified, uncomplicated; F41.9 Anxiety disorder, unspecified; Z90.2 Acquired absence of lung [part of]; Z85.118 Personal history of other malignant neoplasm of bronchus and lung; Z85.820 Personal history of malignant melanoma of skin
CPT/HCPCS: 71045; 71275; 78452; 80053; 82550; 83880; 84484; 85025; 85379; 85610; 85730; 87804; 93005; 93017; 93306; 94640; 94664; 96365; 96366; 96372; 99285; A9502; G0378; J0456; J0696; J1650; J1940; J2785; J7050; J7613; Q9967